=== PATIENT | female | born 1950 | race Caucasian/White ===

== ENCOUNTER 2020-01-30 08:20 | Inpatient (IN) | payer MEDICARE ==
[~2020-01-30] VITALS: Ht 160 cm; Wt 74.2 kg
[2020-01-30 08:47] LABS: EOSINOPHILS % (AUTO) 3.5 % (0.0-8.0); HEMATOCRIT 41.2 % (36-48); LYMPHOCYTES % (AUTO) 32.8 % (21.0-51.0); MEAN CORPUSCULAR HEMOGLOBIN 29.3 pg (27.0-33.0); MEAN CORPUSCULAR HGB CONC 33.3 g/dL (32.0-36.0); NEUTROPHILS % (AUTO) 52.4 % (40.0-77.0); PLATELET COUNT (AUTO) 227 K/uL (130-400); RED BLOOD CELL COUNT(AUTO) 4.68 MIL/uL (4.00-5.50); RED CELL DISTRIBUTION WIDTH 12.6 % (11.0-15.5)
[2020-01-30 09:02] LABS: INR 1.01 (0.85-1.15); PARTIAL THROMBOPLASTIN TIME 26.8 SEC (26.3-35.5); PROTHROMBIN TIME 10.6 SEC (9.6-11.6)
[2020-01-30 09:11] LABS: CREATININE 0.9 mg/dL (0.5-1.5); POTASSIUM 3.7 mmol/L (3.5-5.1)
[2020-01-30 09:17] LABS: ALBUMIN 3.7 g/dL (3.5-5.0); BILIRUBIN,TOTAL 0.4 mg/dL (0.2-1.0); TOTAL PROTEIN, SERUM 7.1 g/dL (6.0-8.3)
[2020-01-30 09:23] LABS: APPEARANCE,URINE Clear (CLEAR); BILIRUBIN,URINE Negative (NEGATIVE); COLOR,URINE Yellow (YELLOW); GLUCOSE, URINE (UA) Negative (NEGATIVE); KETONES,URINE Negative (NEGATIVE); LEUKOCYTE ESTERASE ,URINE Negative (NEGATIVE); NITRATE,URINE Negative (NEGATIVE); OCCULT BLOOD,URINE Negative (NEGATIVE); PH,URINE 7.5 (5.0-8.0); PROTEIN,URINE Negative (NEGATIVE); UROBILINOGEN,URINE 0.2 mg/dL (0.2-1.0)
[2020-01-30 09:26] LABS: AMPHET/METH SCREEN,URINE NEGATIVE (NEGATIVE); BARBITURATE SCREEN, URINE NEGATIVE (NEGATIVE); BENZODIAZEPINES SCREEN,URINE NEGATIVE (NEGATIVE); CANNABINOID SCREEN,URINE NEGATIVE (NEGATIVE); COCAINE SCREEN,URINE NEGATIVE (NEGATIVE); OPIATE SCREEN,URINE NEGATIVE (NEGATIVE); PHENCYCLIDINE SCREEN,URINE NEGATIVE (NEGATIVE)
[2020-01-30] MEDS ORDERED: IOHEXOL-350 75 ML VIAL IV ONE (10:18)
[2020-01-30] MEDS ORDERED: ASPIRIN 325 MG TABLET ONE (10:20)
[2020-01-30] MEDS ORDERED: SODIUM CHLORIDE 0.9% 500ML 500 ML IV ONE (10:21)
[2020-01-30] MEDS ORDERED: ATORVASTATIN CALCIUM 20 MG TABLET PO SCH ×2 (11:30→21:00)
[2020-01-30] MEDS ORDERED: ACETAMINOPHEN EXTENDED RELEASE 650 MG TABLET PO PRN (11:30)
[2020-01-30] MEDS ORDERED: ENOXAPARIN SODIUM 30 MG/0.3 ML SQ ONE (11:47)
[2020-01-30 11:57] LABS: HEMOGLOBIN A1C 5.4 % (4.0-6.0)
[2020-01-30] MEDS ORDERED: LACTULOSE 20 GM/30 ML UDCUP PO PRN (12:00)
[2020-01-30] MEDS: NITROGLYCERIN 1GM/1 INCH PACKET TD SCH ×2 (12:00→21:34)
[2020-01-30] MEDS: HEPARIN SODIUM 5000UNIT/ML 1ML VIAL SQ SCH (12:15)
[2020-01-30 12:27] LABS: THYROID STIMULATING HORMONE 0.52 uIU/mL (0.36-3.74)
[2020-01-30] MEDS ORDERED: NITROGLYCERIN 1GM/1 INCH PACKET TD ONE (13:09)
[2020-01-30] MEDS ORDERED: HEPARIN SODIUM 5000UNIT/ML 1ML VIAL ONE (13:32)
[2020-01-30] MEDS ORDERED: ATORVASTATIN CALCIUM 40 MG TABLET ONE (14:06)
[2020-01-30] MEDS ORDERED: ACETAMINOPHEN 325 MG TAB ONE (17:08)
[2020-01-30 20:15] VITALS: BP 145/86
[2020-01-30] MEDS: FAMOTIDINE 20MG TAB 20 MG TAB PO SCH (21:34)
[2020-01-30] MEDS ORDERED: ASPI-1197 PO (22:46)
[2020-01-30] MEDS ORDERED: FAMO20TA8 PO (22:46)
[2020-01-30] MEDS ORDERED: OMEP20CA12 PO (22:46)
[2020-01-30] MEDS ORDERED: LEVO75TA10 PO (22:46)
[2020-01-30] MEDS ORDERED: HYDR25TA PO (22:46)
[2020-01-30 23:13] VITALS: BP 120/77
[2020-01-31] MEDS: HEPARIN SODIUM 5000UNIT/ML 1ML VIAL SQ SCH ×3 (01:54→20:49)
[2020-01-31 03:25] VITALS: BP 102/65
[2020-01-31 05:13] LABS: BASOPHILS % (AUTO) 0.6 % (0.0-5.0); HEMATOCRIT 39.3 % (36-48); LYMPHOCYTES % (AUTO) 33.7 % (21.0-51.0); MEAN CORPUSCULAR HEMOGLOBIN 29.1 pg (27.0-33.0); MEAN CORPUSCULAR HGB CONC 32.6 g/dL (32.0-36.0); MEAN CORPUSCULAR VOLUME 89.3 fL (79-99); MONOCYTES % (AUTO) 10.6 % (3.0-13.0); NEUTROPHILS % (AUTO) 50.8 % (40.0-77.0); PLATELET COUNT (AUTO) 210 K/uL (130-400); RED CELL DISTRIBUTION WIDTH 12.8 % (11.0-15.5); WHITE BLOOD COUNT (AUTO) 3.5 K/uL (4.8-10.8)
[2020-01-31 05:26] LABS: INR 1.03 (0.85-1.15); PROTHROMBIN TIME 11.1 SEC (9.6-11.6)
[2020-01-31 05:42] LABS: ALANINE AMINOTRANSFERASE 26 U/L (12-78); ALBUMIN 3.4 g/dL (3.5-5.0); ASPARTATE AMINOTRANSFERASE 29 U/L (10-37); BILIRUBIN,TOTAL 0.5 mg/dL (0.2-1.0); CARBON DIOXIDE 30 mmol/L (21-32); CHLORIDE 102 mmol/L (101-111); CHOLESTEROL 240 mg/dL (<200); CREATINE KINASE, TOTAL 174 U/L (21-232); GLOMERULAR FILTR. RATE CALC 59 mL/min (>60); GLUCOSE,RANDOM 92 mg/dL (70-105); HDL CHOLESTEROL 56 mg/dL (35-85); LDL DIRECT 148 mg/dL (0-99); MYOGLOBIN 84 ng/mL (10-92); POTASSIUM 3.2 mmol/L (3.5-5.1); SODIUM SERUM 139 mmol/L (136-145); TOTAL PROTEIN, SERUM 6.6 g/dL (6.0-8.3); TRIGLYCERIDES 177 mg/dL (30-200); TROPONIN I < 0.04 ng/mL (0.00-0.06); UREA NITROGEN, BLOOD 16 mg/dL (7-18)
[2020-01-31] MEDS: NITROGLYCERIN 1GM/1 INCH PACKET TD SCH ×2 (06:05→11:23)
[2020-01-31 07:00] VITALS: BP 141/89
[2020-01-31] MEDS: ACETAMINOPHEN 325 MG TAB PO PRN ×2 (07:28→14:11)
--- NOTE | 2020-01-31 07:30 | NUR ---
AM ASSESSMENT PT LAYING IN BED, HOB ELEVATED 30 DEGREES, RESTING. A/O X 3. NO SOB. NO DISTRESS NOTED. DENIES CHEST PAIN OR DISCOMFORT. DENIES PALPITATIONS. TELE: SR. DENIES N/V AND/OR DIARRHEA. RT SIDED WEAKNESS ON ADMISSION TO ER RESOLVED. UP AD IBIS. C/O HEADACHE. PO PAIN MEDICATION TO BE GIVEN. INSTRUCTED TO CALL FOR ASSISTANCE. CALL VERONA W/IN REACH.
[2020-01-31] MEDS: FAMOTIDINE 20MG TAB 20 MG TAB PO SCH ×2 (09:00→20:45)
[2020-01-31] MEDS ORDERED: FAMOTIDINE 20MG TAB 20 MG TAB PO SCH (09:00)
[2020-01-31] MEDS ORDERED: ASPIRIN 81MG TAB.CHEW PO SCH (09:00)
--- NOTE | 2020-01-31 09:15 | NUR ---
DYSPHAGIA EVAL COMPLETED. -S/S OF ASPIRATION. RECOMMEND REGULAR SOLIDS, THIN LIQUIDS, AND PILLS WHOLE WITH LIQUIDS. Addendum: 01/31/[address] MAGGY LOCO Amended: Links added.
[2020-01-31 11:00] VITALS: BP 143/85
--- NOTE | 2020-01-31 13:31 | NUR ---
Nutrition Intervention: Nutrition consult based on suspected TIA and Stroke. Pt. on Heart Healthy diet with poor p.o. intake this morning. Pt. reports is not very hungry. Spoke with pt. regarding nutritional supplementation and pt. declined to try. S/P Dysphagia eval.(01/31/2020)- [employer] rec. Regular texture/thin liquids. Labs reviewed(Alb 3.4, Chol 240, LDL Chol 148). LBM: 01/30/2020. Pt. educated on Stroke Nutrition Therapy and provided with education material. Pt. verbalized understanding. Recommendations: 1) Rec. 6 small meals Heart Healthy diet. 2) Stroke Nutrition Therapy diet education given to patient. 3) Continue to monitor pt's nutritional status. 4) Consult RD as nutrition concerns arise. Addendum: 01/31/20 at [address] Amended: Links added.
[2020-01-31 15:00] VITALS: BP 132/78
--- NOTE | 2020-01-31 15:05 | NUR ---
INITIAL: Met with pt and spouse this afternoon to discuss dcp. Per pt, she is a [place] from [place] and [place] of [place]. Pt is currently living in a [facility]. She mentions that prior to admission she was independent w ambulation and ADLs. Pt states that she does not own any DME or receive services. Per pt she feels safe and comfortable [facility]. CM to continue to follow and wait for Md recommendations. Addendum: 01/31/20 at 1509 by TIRSO MCCOY Amended: Links added.
[2020-01-31 19:21] VITALS: BP 141/77
[2020-01-31 23:21] VITALS: BP 125/77
[2020-02-01 03:21] VITALS: BP 127/78
[2020-02-01 03:22] LABS: BASOPHILS % (AUTO) 0.8 % (0.0-5.0); EOSINOPHILS % (AUTO) 3.8 % (0.0-8.0); HEMATOCRIT 38.2 % (36-48); LYMPHOCYTES % (AUTO) 36.6 % (21.0-51.0); MEAN CORPUSCULAR HEMOGLOBIN 29.6 pg (27.0-33.0); MEAN CORPUSCULAR HGB CONC 33.5 g/dL (32.0-36.0); MEAN CORPUSCULAR VOLUME 88.2 fL (79-99); MONOCYTES % (AUTO) 16.4 % (3.0-13.0); NEUTROPHILS % (AUTO) 42.1 % (40.0-77.0); PLATELET COUNT (AUTO) 202 K/uL (130-400); RED BLOOD CELL COUNT(AUTO) 4.33 MIL/uL (4.00-5.50); RED CELL DISTRIBUTION WIDTH 12.8 % (11.0-15.5); WHITE BLOOD COUNT (AUTO) 3.7 K/uL (4.8-10.8)
[2020-02-01 03:34] LABS: ALBUMIN 3.3 g/dL (3.5-5.0); BILIRUBIN,TOTAL 0.4 mg/dL (0.2-1.0); POTASSIUM 3.9 mmol/L (3.5-5.1); TOTAL PROTEIN, SERUM 6.6 g/dL (6.0-8.3)
[2020-02-01 07:00] VITALS: BP 134/74
[2020-02-01] MEDS: HYDROCHLOROTHIAZIDE 25 MG TABLET PO SCH (09:00)
[2020-02-01] MEDS: FAMOTIDINE 20MG TAB 20 MG TAB PO SCH ×2 (09:35→21:27)
[2020-02-01] MEDS: ASPIRIN 81 MG EC TAB PO SCH (09:35)
[2020-02-01] MEDS: HEPARIN SODIUM 5000UNIT/ML 1ML VIAL SQ SCH ×2 (09:38→21:27)
[2020-02-01 11:00] VITALS: BP 132/82
[2020-02-01 15:00] VITALS: BP 147/99
[2020-02-01 19:39] VITALS: BP 134/84
[2020-02-01 23:33] VITALS: BP 139/77
[2020-02-02 04:11] VITALS: BP 146/79
[2020-02-02 04:34] LABS: EOSINOPHILS % (AUTO) 3.7 % (0.0-8.0); HEMATOCRIT 37.5 % (36-48); LYMPHOCYTES % (AUTO) 41.5 % (21.0-51.0); MEAN CORPUSCULAR HEMOGLOBIN 29.6 pg (27.0-33.0); MEAN CORPUSCULAR HGB CONC 32.8 g/dL (32.0-36.0); MEAN CORPUSCULAR VOLUME 90.4 fL (79-99); MONOCYTES % (AUTO) 19.7 % (3.0-13.0); NEUTROPHILS % (AUTO) 33.8 % (40.0-77.0); PLATELET COUNT (AUTO) 189 K/uL (130-400); RED BLOOD CELL COUNT(AUTO) 4.15 MIL/uL (4.00-5.50)
[2020-02-02 05:01] LABS: ALBUMIN 3.2 g/dL (3.5-5.0); BILIRUBIN,TOTAL 0.3 mg/dL (0.2-1.0); POTASSIUM 3.6 mmol/L (3.5-5.1); TOTAL PROTEIN, SERUM 6.4 g/dL (6.0-8.3)
[2020-02-02 07:00] VITALS: BP 123/78
[2020-02-02] MEDS: ASPIRIN 81 MG EC TAB PO SCH (07:35)
[2020-02-02] MEDS: FAMOTIDINE 20MG TAB 20 MG TAB PO SCH (07:35)
[2020-02-02] MEDS: HYDROCHLOROTHIAZIDE 25 MG TABLET PO SCH (07:35)
[2020-02-02] MEDS: HEPARIN SODIUM 5000UNIT/ML 1ML VIAL SQ SCH (07:38)
--- NOTE | 2020-02-02 08:00 | NUR ---
ASSESSMENT PT IS AAOX3 DENIES CP DENIES SOB DENIES NV NO COMPLAINTS, CALL LIGHT WITHIN REACH. NO NEURO DEFICITS NOTED. SITTING UP AT BEDSIDE.
[2020-02-02 11:00] VITALS: BP 145/86
--- NOTE | 2020-02-02 11:40 | NUR ---
MD ROUNDS / CONSULTATION DR ARZATE AND DR MEYER ROUNDED CONSULT PLACED WITH [facility] FOR [facility], LEFT MESSAGE WITH CLAIRE
[2020-02-02] MEDS ORDERED: PRAV20TA4 PO (14:37)
[2020-02-02] MEDS ORDERED: CLOP75TA32 PO (14:37)
--- NOTE | 2020-02-02 15:28 | NUR ---
DISCHARGE INSTRUCTIONS GIVEN TO PATIENT AND FAMILY INSTRUCTED ON FOLLOW UP APPOINTMENTS, MEDS TO BE TAKEN, AND ALL DC INSTRUCTIONS. PATIENT AND FAMILY AGREE TO FOLLOW INSTRUCTIONS, ALL QUESTIONS ANSWERED, PIV REMOVED, CATH TIP INTACT, TELE PACK REMOVED. DOWN VIA WC WITH NURSE AIDE AND FAMILY TO PRIVATE VEHICLE.
== END 2020-02-02 15:52 | disposition home or self-care (01) | DRG 65 ==
LOC: EDH 08:20 → UNDOADMIN 08:21 → EDHIP 08:21 → 2AH 19:48
PROVIDERS: ADMIT Family Medicine; ATTEND Family Medicine
DX: I63.9 Cerebral infarction, unspecified (principal); Q21.1 Atrial septal defect; E03.9 Hypothyroidism, unspecified; I10 Essential (primary) hypertension; E66.01 Morbid (severe) obesity due to excess calories; E78.5 Hyperlipidemia, unspecified; H90.5 Unspecified sensorineural hearing loss; Z68.29 Body mass index [BMI] 29.0-29.9, adult; Z79.82 Long term (current) use of aspirin; Z88.5 Allergy status to narcotic agent; Z88.2 Allergy status to sulfonamides; Z88.8 Allergy status to other drugs, medicaments and biological substances; Z82.3 Family history of stroke; Z82.49 Family history of ischemic heart disease and other diseases of the circulatory system
CPT/HCPCS: 36415; 70450; 70496; 70498; 70551; 71045; 80053; 80061; 80305; 81003; 82550; 82948; 83036; 83721; 83874; 84443; 84484; 85025; 85610; 85651; 85730; 92610; 93005; 93306; 93356; 93880; 99291; G0378; J1644; J1650; J7040; Q9967